=== PATIENT | female | born 1980 | race Caucasian/White ===

== ENCOUNTER 2016-12-24 15:37 | Emergency (ER) | payer OTHER ==
--- NOTE | ~2016-12-24 | CR150 ---
[facility] A Service of [facility] & [facility] RADIOLOGY TEXT RESULTS PATIENT: BOSTON MORAN LOCATION: [facility] : 84 UNIT #: [id number] AGE: [address]: Renetta Almeida SEX: F ORDER DR: [id number] [facility] [address] [place], [place] [address] [id number] E MR#: [id number] Acc #: [id number] NAME: BOSTON MORAN : 1980 SEX: F STUDY DATE/TIME: 12/24/2016 16:25 UNIT: [facility] ROOM: STUDY DESCRIPTION: CR Hip Min 2 Views Lt Attending Physician: Renetta Almeida P.A.-C. Ordering Physician: Renetta Almeida P.A.-C. Primary Care Physician: Ann Rousseau M.D. MEDICAL IMAGING REPORT This report is preliminary unless electronic signature is present EXAM Left hip 3 views, 12/24/2016 HISTORY Left hip pain anteriorly when weightbearing status post fall 6 months ago. Persistent pain worsening today. Findings and a normal port. Dictated by... Hernan Zhang M.D. THIS IS AN ELECTRONICALLY VERIFIED REPORT Hernan Zhang M.D. at 12/25/2016 10:35 AM LORNA/shannan TD: 12/25/2016 00:35 JOB #: [id number] MEDICAL IMAGING REPORT Page 1 of 1 COPY
[~2016-12-24 15:37] MED LIST: CELEXA PO; FLEXERIL PO; LORTAB 5/500 TA1 TA2 PO; RISPERIDONE PO
== END 2016-12-24 17:20 | disposition home or self-care (01) ==
LOC: CFTX 15:37 → CED 15:37 → CFTX 16:15
DX: M25.552 Pain in left hip (principal); F32.9 Major depressive disorder, single episode, unspecified; I10 Essential (primary) hypertension; Z98.51 Tubal ligation status
CPT/HCPCS: 73502; 99283

== ENCOUNTER 2017-02-19 22:44 | Emergency (ER) | payer OTHER ==
[~2017-02-19] VITALS: Ht 157.5 cm; Wt 104.3 kg
--- NOTE | ~2017-02-19 | CR127 ---
[facility] A Service of [facility] & [facility] RADIOLOGY TEXT RESULTS PATIENT: BOSTON MORAN LOCATION: [facility] : 84 UNIT #: [id number] AGE: [address]: Meeta Brown APRN SEX: F ORDER DR: [id number] [facility] [address] [place], [place] [address] [id number] E MR#: [id number] Acc #: [id number] NAME: BOSTON MORAN : 1980 SEX: F STUDY DATE/TIME: 02/20/2017 00:12 UNIT: [facility] ROOM: STUDY DESCRIPTION: CR Foot Complete Min 3 View Rt Attending Physician: Meeta Brown A.P.R.N. Ordering Physician: Meeta Brown A.P.R.N. Primary Care Physician: Ann Rousseau M.D. MEDICAL IMAGING REPORT This report is preliminary unless electronic signature is present EXAM Right foot 02/20/2017 at 0012 hours INDICATION Lateral foot pain and soft tissue swelling after a fall today. FINDINGS The tarsal, metatarsal, and phalangeal elements are all anatomically normal in position and alignment. There are no articular defects. No fractures or radiopaque foreign bodies in the soft tissues are apparent. IMPRESSION Normal foot. Dictated by... Dario Hood Jr., M.D. THIS IS AN ELECTRONICALLY VERIFIED REPORT Dario Hood Jr., M.D. at 02/20/2017 9:34 PM GILLES/cynthia TD: 02/20/2017 09:35 JOB #: [id number] MEDICAL IMAGING REPORT Page 1 of 1 COPY
== END 2017-02-20 01:10 | disposition home or self-care (01) ==
LOC: CFTX 22:44 → CED 22:44 → CFTX 23:59
DX: S93.601A Unspecified sprain of right foot, initial encounter (principal); W01.0XXA Fall on same level from slipping, tripping and stumbling without subsequent striking against object, initial encounter; Y92.524 Gas station as the place of occurrence of the external cause
CPT/HCPCS: 29540; 73630; 99283